=== PATIENT | male | born 2005 | race Caucasian/White ===

== ENCOUNTER 2023-02-26 18:49 | Emergency (ER) | payer SELFPAY ==
[2023-02-26 18:53] VITALS: BP 115/64; PULSE 84; RESP 20; TEMP 36.6; O2SAT 98
--- NOTE | 2023-02-26 20:17 | ED.GENADULT ---
HPI - General Adult General Chief complaint: Skin/Abscess/Foreign Body Stated complaint: skin issues Time Seen by Provider: 02/26/23 19:50 Source: patient Limitations: no limitations History of Present Illness HPI narrative: Patient is a 17-year-old male present to the emergency department complaining of blisters and itching to the bilateral hands over the medial and lateral aspects of all the digits that is happened in the past and seems to recur and was told in the past that it was due to contact dermatitis however he denies any new contact exposures and states that this has been going on for at least the past few days and denies any fevers or vomiting or discharge. Patient has not tried any medications for this but does note that steroids in the past did help. Patient denies any history of allergy testing. Patient denies any significant warmth or redness or any recent injuries or pain. Related Data Allergies Allergy/AdvReac Type Severity Reaction Status Date / Time No Known Allergies Allergy Verified 03/16/14 11:12 Review of Systems Review of Systems: A 10 system review of systems was completed on the patient and is negative except for what is stated in the HPI. Nursing and ancillary documentation was reviewed. [facility] Social History Social History Gender identity (if verbalized by the patient): Male Comments At time of signature, I have reviewed and agree with nursing past medical, surgical, social and family history unless otherwise noted. Please see the nursing chart for further information. There is no relevant family history pertinent to the presenting complaint. Exam Narrative: CONST: No acute distress. Well nourished. HENMT: Head is normocephalic and atraumatic. Moist mucous membranes. No posterior oropharynx erythema. EYES: No conjunctival icterus, injection, or pallor. PERRL. NECK: No meningeal signs. RESP: Able to speak in full sentences. Normal respiratory effort. CTAB. CARDIO: Regular rate. Regular rhythm. 2+ DP and radial pulses bilaterally. GI: Nondistended. No tenderness to palpation. Soft. : No CVA tenderness to palpation. NEURO: Oriented x3. Moves all extremities. EXTREM: No pedal edema. PSYCH: Normal affect. Skin: Rashes: rashes noted (clear vesicles and dry skin throughout all fingers medial & lateral aspects) vesicles bilateral hand fluctuant not assessed and nontender Course Vital Signs Vital signs: Vital Signs Temperature 98 F 02/26/23 18:53 Pulse Rate 84 02/26/23 18:53 Respiratory Rate 20 02/26/23 18:53 Blood Pressure 115/64 02/26/23 18:53 Pulse Oximetry 98 02/26/23 18:53 Temperature 98 F 02/26/23 18:53 Pulse Rate 84 02/26/23 18:53 Respiratory Rate 20 02/26/23 18:53 Blood Pressure 115/64 02/26/23 18:53 Pulse Oximetry 98 02/26/23 18:53 Medical Decision Making MDM Narrative Medical decision making narrative: Patient presents with the above complaint. Initial vitals are remarkable for no significant abnormalities. Patient appears in no acute distress. Physical examination notable for clear fluid-filled vesicles throughout the fingers of the upper extremities over the lateral and medial aspects consistent with dyshidrotic eczema. Patient has a history of flares of this in the past, has never had allergy testing. Discussed plan to prescribe patient a topical steroid and antihistamines and to follow-up with dermatology and return promptly for any new or concerning symptoms including any fever, redness, discharge, pain, or any new or concerning symptoms. Medical Records Medical records reviewed: Yes I reviewed the external patient's medical records. Vital Signs Vital Signs: Vital Signs Temperature 98 F 02/26/23 18:53 Pulse Rate 84 02/26/23 18:53 Respiratory Rate 20 02/26/23 18:53 Blood Pressure 115/64 02/26/23 18:53 Pulse Oximetry 98 02/26/23 18:53 T
[2023-02-26 20:46] VITALS: BP 124/82; PULSE 71; RESP 15; O2SAT 100
== END 2023-02-26 20:47 | disposition home or self-care (01) ==
PROVIDERS: Emergency Provider Student in an Organized Health Care Education/Training Program; PCP Family Medicine Adolescent Medicine
DX: L30.1 Dyshidrosis [pompholyx] (principal)
CPT/HCPCS: 99283